=== PATIENT | female | born 1995 | race Two or more races ===

== ENCOUNTER 2018-03-19 17:55 | Emergency (ER) | payer OTHER ==
[~2018-03-19] VITALS: Ht 160 cm; Wt 61.2 kg
[~2018-03-19 17:55] MED LIST: DOXYCYCLINE HY100 MG PO; NAPROXEN SODIU550 MG PO
== END 2018-03-19 22:16 | disposition home or self-care (01) ==
LOC: ER 17:55
DX: B34.9 Viral infection, unspecified (principal); R50.9 Fever, unspecified; J11.1 Influenza due to unidentified influenza virus with other respiratory manifestations

== ENCOUNTER 2021-07-17 14:57 | Emergency (ER) | payer OTHER ==
[~2021-07-17] VITALS: Ht 157.5 cm; Wt 61.2 kg
== END 2021-07-17 17:39 | disposition home or self-care (01) ==
LOC: ER 14:57
DX: S43.492A Other sprain of left shoulder joint, initial encounter (principal); S46.912A Strain of unspecified muscle, fascia and tendon at shoulder and upper arm level, left arm, initial encounter; W19.XXXA Unspecified fall, initial encounter; Y93.89 Activity, other specified; Y92.89 Other specified places as the place of occurrence of the external cause

== ENCOUNTER 2022-08-03 12:34 | Emergency (ER) | payer OTHER ==
[~2022-08-03] VITALS: Ht 167.6 cm; Wt 59.0 kg
== END 2022-08-03 15:10 | disposition home or self-care (01) ==
LOC: ER 12:34
DX: M25.531 Pain in right wrist (principal)

== ENCOUNTER 2023-06-24 14:32 | Emergency (ER) | payer OTHER ==
[~2023-06-24] VITALS: Ht 165.1 cm; Wt 64.4 kg
[2023-06-24] MEDS ORDERED: GUAIFENESIN/DEXTROMETHORPHAN 100 MG/5 ML ML PO ONE (15:45)
[2023-06-24] MEDS ORDERED: KETOROLAC TROMETHAMINE 60 MG VIAL IM ONE (15:45)
[2023-06-24] MEDS ORDERED: CETIRIZINE HCL 5 MG/5 ML ML PO ONE (15:45)
[2023-06-24 16:24] LABS: HEMOGLOBIN 13.5 g/dL (12.0-15.00); MEAN CELL VOLUME 87.2 fL (80.00-100.00); MEAN CORPUSCULAR HEMOGLOBIN 29.4 pg (27.00-32.0); MEAN CORPUSCULAR HGB CONC 33.7 g/dl (32.0-36.0); PLATELET COUNT 197 K/uL (150-450); RED BLOOD COUNT 4.59 M/uL (4.00-6.00); RED CELL DISTRIBUTION WIDTH 13.3 % (11.5-14.5)
[2023-06-24] MEDS ORDERED: TUSSIN DM SYRU118 ML PO (18:47)
[2023-06-24] MEDS ORDERED: ZYRTEC10 MG PO (18:47)
[2023-06-24] MEDS ORDERED: AMOX-CLAV 875-1 EAC1 PO (18:47)
[2023-06-24] MEDS ORDERED: CEFTRIAXONE SODIUM 1,000 MG VIAL IM ONE (19:00)
[2023-06-24] MEDS ORDERED: ACETAMINOPHEN 500 MG GEL..CAP PO ONE (19:15)
== END 2023-06-24 19:36 | disposition home or self-care (01) ==
LOC: ER 14:33
PROVIDERS: Nurse Practitioner Family
DX: J06.9 Acute upper respiratory infection, unspecified (principal); J00 Acute nasopharyngitis [common cold]; R05.9 Cough, unspecified; Z20.822 Contact with and (suspected) exposure to COVID-19